=== PATIENT | male | born 1985 | race Two or more races ===

== ENCOUNTER 2019-06-03 01:57 | Emergency (ER) | payer SELFPAY ==
[~2019-06-03] VITALS: Ht 180.3 cm; Wt 77.0 kg
[2019-06-03 02:00] VITALS: BP 128/78
== END 2019-06-03 14:50 | disposition left against medical advice (07) ==
LOC: ER 01:57
DX: R45.851 Suicidal ideations (principal); Z53.21 Procedure and treatment not carried out due to patient leaving prior to being seen by health care provider